=== PATIENT | male | born 1985 | race Caucasian/White ===

== ENCOUNTER 2016-08-07 00:36 | Emergency (ER) | payer OTHER ==
[~2016-08-07] VITALS: Ht 172.7 cm; Wt 95.3 kg
[~2016-08-07 00:36] MED LIST: CARBAMAZEPINE100 M2 PO; CARBAMAZEPINE200 M6; ENALAPRIL MALEAT5 M1 PO; HALLS3.2 MG MM; IBUPROFEN 600600 M1 PO; KLONOPIN0.5 MG; LANOXIN 0.250.25 M1 PO; LEVAQUIN 500 M500 M2 PO; PRILOSEC40 MG PO; TESSALON PERLE100 MG PO
[2016-08-07] MEDS ORDERED: NORCO 5-325 TA1 EACH PO (01:05)
[2016-08-07 01:13] VITALS: BP 114/47
== END 2016-08-07 01:13 | disposition home or self-care (01) ==
LOC: ER 00:36
DX: K08.89 Other specified disorders of teeth and supporting structures (principal)